=== PATIENT | male | born 1960 | race Caucasian/White ===

== ENCOUNTER 2019-06-07 19:40 | Emergency (ER) | payer MEDICAID, SELFPAY | END 2019-06-08 03:33 | disposition admitted as inpatient to this hospital (09) | LOC: ER 07-07 09:53 | PROVIDERS: Emergency Provider Nurse Practitioner Family | DX: G93.40 Encephalopathy, unspecified (principal); B18.2 Chronic viral hepatitis C; K40.90 Unilateral inguinal hernia, without obstruction or gangrene, not specified as recurrent; F17.210 Nicotine dependence, cigarettes, uncomplicated | CPT/HCPCS: 36415; 70450; 74177; 80053; 82140; 83605; 83690; 85025; 87040; 96360; 99283; 99285; J7030; Q9967 ==

== ENCOUNTER 2019-06-07 19:40 | Inpatient (IN) | payer MEDICAID, SELFPAY ==
[2019-06-07 20:50] VITALS: BP 174/82; PULSE 74; RESP 20; TEMP 36.6; O2SAT 100; BMI 28.1
--- NOTE | 2019-06-07 21:23 | W.ED.ABDPA2 ---
HPI - Abdominal Pain General: Chief Complaint: Abdominal Pain Stated Complaint: AMS Time Seen by Provider: 06/07/19 21:15 History of Present Illness: HPI narrative: Patient was brought in by his sister for concerns of him sleeping for the last 3 days. Patient barely moves around or gets up out of bed. Patient did report that 2 days ago he did throw up quite a bit and has been having some diarrhea. Patient has a history of high ammonia levels due to liver disease, patient reports being in [facility] for high ammonia levels about 2 to 3 weeks ago. Patient states he could not get his medication due to cost. Patient reports diagnosis of hepatitis C. Patient appears chronically ill. Patient appears in no pain at rest. Associated Symptoms: Reports nausea Review of Systems General: Reports: 10 or more systems reviewed and unremarkable except in HPI and below Const: Reports: fatigue and malaise GI: Reports: abdominal pain and nausea PFSH ED PFSH: Statuses (acute, chronic, etc) shown below reflect problem list status as previously entered and may not be historically accurate Social History Smoking and tobacco status: current every day smoker Physical Exam Const: COMMON NORMALS: no apparent distress and oriented x3 GENERAL APPEARANCE: cooperative HENMT: COMMON NORMALS: normocephalic, external ears normal, EAC's normal, TM's normal bilaterally and external nose normal HEAD & SCALP: normal to inspection and normocephalic FACE & SINUS: normal facial exam NOSE: external nose normal GENERAL EAR: hearing not grossly impaired EXTERNAL EAR: Yes external ears normal EXTERNAL AUDITORY CANAL: EAC's normal TYMPANIC MEMBRANE: TM's normal bilaterally MOUTH: oral and palatal mucosa normal (oral mucosa mildly dry) THROAT: posterior oropharynx normal Eye: COMMON NORMALS: PERRL and EOMs intact bilaterally PUPIL: Yes PERRL Neck/C-Spine: COMMON NORMALS: full ROM and no lymphadenopathy Lymph: LYMPHATIC: no lymphedema noted Chest: COMMONS NORMALS: inspection of chest normal and palpation of chest normal Resp: COMMON NORMALS: normal respiratory effort and clear to auscultation bilaterally AUSCULTATION: clear to auscultation bilaterally Cardio: COMMON NORMALS: regular rate and regular rhythm RATE: regular rate RHYTHM: regular rhythm GI: COMMON NORMALS: soft to palpation PALPATION: Yes soft and Yes tender (suprapubic, swelling to right inguinal area, soft, reducible hernia) : COMMON NORMALS: Yes no CVA tenderness BLADDER/KIDNEY EXAM: Yes no CVA tenderness Back/Pelvis: COMMON NORMALS: no CVA tenderness and thoracic and lumbar spine normal to inspection Extremity: COMMON NORMALS: normal to inspection GENERAL: No edema Neuro: COMMON NORMALS: oriented x3, moves all extremities and no focal motor deficits Psych: COMMON NORMALS: mental status grossly normal and cooperative Skin: COMMON NORMALS: no rashes or lesions noted GENERAL SKIN EXAM: no rashes or lesions noted Course ED course: 4, reviewed with Dr. Fournier patient abnormal ammonia, recommended treatment with Lactulose, potassium, check for ETOH, CT head and abd, and magnessium, then we will talk with hospitalist for admission. wjw [id number], talked with Dr. Suarez, will come see patient in ER for evaluation. wjw [id number], Dr. Nguyễn visited with patient, agreed to admission. wjw Vital Signs: Vital signs: Vital Signs Temperature 97.9 F 06/07/19 20:50 Pulse Rate 76 06/07/19 23:31 Respiratory Rate 16 06/07/19 23:31 Blood Pressure 135/66 06/07/19 23:31 Pulse Oximetry 100 06/07/19 23:01 MDM - Abdominal Pain MDM Narrative: Medical decision making narrative: Patient comes in today for complaints of change in mental status. On exam patient has mild jaundice skin. Respirations are even lungs are clear to auscultation. Skin is warm and dry. Decreased turgor is noted. Abdomen soft. Patient does have a reducible hernia in the right inguinal area. Oromucosa is mildly dry. Differential diagnosis includes hepatic encephalopathy, dehydration, sepsis, bowel obstruction, gastroenteritis, UTI. Laboratory values were significant for a potassium 3.3, ammonia of 109, bilirubin of 1.9. Patient was medicated in the ER with 20 mEq of potassium, 1 L of IV fluids, 30 g of lactulose. Reviewed patient with Dr. Romano who recommended that patient be admitted to the hospital for altered mental status and hepatic encephalopathy. Reviewed with Dr. Nguyễn who after visiting with patient agreed to plan for admission. Patient needs admission for IV fluids, medical therapy, repeat labs. Lab Data: Labs: Lab Results 06/07/19 06/07/19 06/07/19 Range/Units 21:24 21:24 21:24 WBC 6.1 (4.0-10.0) 10^3/ uL RBC 3.59 L (4.1-5.3) 10^6/u L Hgb 12.4 (11.7-16.6) g/dL Hct 34.5 L (42.0-52.0) % MCV 96.1 H (80-94) fL MCH 34.5 H (28.0-34.0) pg MCHC 35.9 (30.0-36.0) g/dL RDW 14.2 (12.1-15.1) % Plt Count 120 L (130-400) 10^3/c mm MPV 11.3 H (7.4-10.4) fL Neut % (Auto) 51.9 % Lymph % (Auto) 24.7 % [place] % (Auto) 14.9 % Eos % (Auto) 7.2 % Baso % (Auto) 1.0 % Neut # (Auto) 3.2 (1.8-7.7) 10^3/u L Lymph # (Auto) 1.5 (0.8-4.8) 10^3/u L [place] # (Auto) 0.9 (0.2-0.9) 10^3/u L Eos # (Auto) 0.4 (0.0-0.8) 10^3/u L Baso # (Auto) 0.1 (0.0-0.1) 10^3/u L Nucleated RBC % (a uto) 0 % Nucleated RBCs # 0.0 /100WBC Sodium 140 (136-145) mmol/L Potassium 3.3 L (3.5-5.1) mmol/L Chloride 109 H (98-107) mmol/L Carbon Dioxide 21 L (22-29) mmol/L Anion Gap 13.3 (5-19) BUN 12 (6-20) mg/dL Creatinine 0.6 L (0.7-1.2) mg/dL GFR Calculation 137.9 H (90-130) mL/min Glucose 115 H (74-109) mg/dL Lactic Acid 1.5 (0.5-2.2) mmol/L Calcium 9.3 (8.6-10.0) mg/Dl Magnesium (1.7-2.3) mg/dL Total Bilirubin 1.9 H (0.15-1.2) mg/dL AST 49 H (0-40) U/L ALT 32 (0-41) U/L Alkaline Phosphata se 123 (40-130) IU/L Ammonia (16-60) umol/L Total Protein 6.3 L (6.6-8.7) g/dL Albumin 2.7 L (3.5-5.2) g/dL Globulin 3.6 (1.3-4.6) g/dL Lipase 70 H (13-60) U/L Urine Color (Yellow) Urine Appearance (CLEAR) Urine pH (5-7) Ur Specific Gravit y (1.005-1.030) Urine Protein (Negative) Urine Glucose (UA) (Normal) Urine Ketones (Negative) Urine Occult Blood (Negative) Urine Nitrate (Negative) Urine Bilirubin (NEGATIVE) Urine Urobilinogen (Negative) mg/dL Ur Leukocyte Yahaira ase (Negative) Urine RBC (0-2) /hpf Urine WBC (0-5) /hpf Ur Squamous Epith Cells (0-5) Urine Bacteria (NONE) Urine Opiates Scre en (Negative) ng/mL Ur Barbiturates Sc reen (Negative) ng/mL Ur Phencyclidine S crn (Negative) ng/mL Ur Amphetamines Sc reen (Negative) ng/mL U Benzodiazepines Scrn (Negative) ng/mL Urine Cocaine Scre en (Negative) ng/mL U Marijuana (THC) Screen (Negative) ng/mL Ethyl Alcohol (0-10) mg/dL 06/07/19 06/07/19 06/07/19 Range/Units 21:24 23:50 23:50 WBC (4.0-10.0) 10^3/ uL RBC (4.1-5.3) 10^6/u L Hgb (11.7-16.6) g/dL Hct (42.0-52.0) % MCV (80-94) fL MCH (28.0-34.0) pg MCHC (30.0-36.0) g/dL RDW (12.1-15.1) % Plt Count (130-400) 10^3/c mm MPV (7.4-10.4) fL Neut % (Auto) % Lymph % (Auto) % [place] % (Auto) % Eos % (Auto) % Baso % (Auto) % Neut # (Auto) (1.8-7.7) 10^3/u L Lymph # (Auto) (0.8-4.8) 10^3/u L [place] # (Auto) (0.2-0.9) 10^3/u L Eos # (Auto) (0.0-0.8) 10^3/u L Baso # (Auto) (0.0-0.1) 10^3/u L Nucleated RBC % (a uto) % Nucleated RBCs # /100WBC Sodium (136-145) mmol/L Potassium (3.5-5.1) mmol/L Chloride (98-107) mmol/L Carbon Dioxide (22-29) mmol/L Anion Gap (5-19) BUN (6-20) mg/dL Creatinine (0.7-1.2) mg/dL GFR Calculation (90-130) mL/min Glucose (74-109) mg/dL Lactic Acid (0.5-2.2) mmol/L Calcium (8.6-10.0) mg/Dl Magnesium (1.7-2.3) mg/dL Total Bilirubin (0.15-1.2) mg/dL AST (0-40) U/L ALT (0-41) U/L Alkaline Phosphata se (40-130) IU/L Ammonia 109 H (16-60) umol/L Total Protein (6.6-8.7) g/dL Albumin (3.5-5.2) g/dL Globulin (1.3-4.6) g/dL Lipase (13-60) U/L Urine Color Yellow (Yellow) Urine Appearance Clear (CLEAR) Urine pH 5 (5-7) Ur Specific Gravit y 1.015 (1.005-1.030) Urine Protein Neg (Negative) Urine Glucose (UA) Norm (Normal) Urine Ketones Negative (Negative) Urine Occult Blood Neg (Negative) Urine Nitrate Negative (Negative) Urine Bilirubin Neg (NEGATIVE) Urine Urobilinogen >=8.0 H (Negative) mg/dL Ur Leukocyte Yahaira ase Negative (Negative) Urine RBC None (0-2) /hpf Urine WBC None (0-5) /hpf Ur Squamous Epith Cells None (0-5) Urine Bacteria None (NONE) Urine Opiates Scre en Negative (Negative) ng/mL Ur Barbiturates Sc reen Negative (Negative) ng/mL Ur Phencyclidine S crn Negative (Negative) ng/mL Ur Amphetamines Sc reen Positive H (Negative) ng/mL U Benzodiazepines Scrn Negative (Negative) ng/mL Urine Cocaine Scre en Negative (Negative) ng/mL U Marijuana (THC) Screen Negative (Negative) ng/mL Ethyl Alcohol (0-10) mg/dL 06/08/19 Range/Units 21:24 WBC (4.0-10.0) 10^3/ uL RBC (4.1-5.3) 10^6/u L Hgb (11.7-16.6) g/dL Hct (42.0-52.0) % MCV (80-94) fL MCH (28.0-34.0) pg MCHC (30.0-36.0) g/dL RDW (12.1-15.1) % Plt Count (130-400) 10^3/c mm MPV (7.4-10.4) fL Neut % (Auto) % Lymph % (Auto) % [place] % (Auto) % Eos % (Auto) % Baso % (Auto) % Neut # (Auto) (1.8-7.7) 10^3/u L Lymph # (Auto) (0.8-4.8) 10^3/u L [place] # (Auto) (0.2-0.9) 10^3/u L Eos # (Auto) (0.0-0.8) 10^3/u L Baso # (Auto) (0.0-0.1) 10^3/u L Nucleated RBC % (a uto) % Nucleated RBCs # /100WBC Sodium (136-145) mmol/L Potassium (3.5-5.1) mmol/L Chloride (98-107) mmol/L Carbon Dioxide (22-29) mmol/L Anion Gap (5-19) BUN (6-20) mg/dL Creatinine (0.7-1.2) mg/dL GFR Calculation (90-130) mL/min Glucose (74-109) mg/dL Lactic Acid (0.5-2.2) mmol/L Calcium (8.6-10.0) mg/Dl Magnesium 1.8 (1.7-2.3) mg/dL Total Bilirubin (0.15-1.2) mg/dL AST (0-40) U/L ALT (0-41) U/L Alkaline Phosphata se (40-130) IU/L Ammonia (16-60) umol/L Total Protein (6.6-8.7) g/dL Albumin (3.5-5.2) g/dL Globulin (1.3-4.6) g/dL Lipase (13-60) U/L Urine Color (Yellow) Urine Appearance (CLEAR) Urine pH (5-7) Ur Specific Gravit y (1.005-1.030) Urine Protein (Negative) Urine Glucose (UA) (Normal) Urine Ketones (Negative) Urine Occult Blood (Negative) Urine Nitrate (Negative) Urine Bilirubin (NEGATIVE) Urine Urobilinogen (Negative) mg/dL Ur Leukocyte Yahaira ase (Negative) Urine RBC (0-2) /hpf Urine WBC (0-5) /hpf Ur Squamous Epith Cells (0-5) Urine Bacteria (NONE) Urine Opiates Scre en (Negative) ng/mL Ur Barbiturates Sc reen (Negative) ng/mL Ur Phencyclidine S crn (Negative) ng/mL Ur Amphetamines Sc reen (Negative) ng/mL U Benzodiazepines Scrn (Negative) ng/mL Urine Cocaine Scre en (Negative) ng/mL U Marijuana (THC) Screen (Negative) ng/mL Ethyl Alcohol < 10 (0-10) mg/dL Discharge Plan Discharge Patient Disposition: Admitted As Inpatient Clinical Impression: Encephalopathy, hepatic, Hep C w/o coma, chronic, Inguinal hernia Condition: Stable Prescriptions: No Action Unable to Assess RF: 0 Coding Level of Care Code ED Civil Structural Designer for Chg Fwd Exam Problem Focused
[2019-06-07 21:46] LABS: Basophils # 0.1 10^3/uL (0.0-0.1); Eosinophils # 0.4 10^3/uL (0.0-0.8); Eosinophils % 7.2 %; Hematocrit 34.5 % (42.0-52.0); Hemoglobin 12.4 g/dL (11.7-16.6); Lymphocytes # 1.5 10^3/uL (0.8-4.8); Lymphocytes % 24.7 %; Mean Corpuscular HGB Conc 35.9 g/dL (30.0-36.0); Mean Corpuscular Hemoglobin 34.5 pg (28.0-34.0); Mean Corpuscular Volume 96.1 fL (80-94); Mean Platelet Volume 11.3 fL (7.4-10.4); Monocytes # 0.9 10^3/uL (0.2-0.9); Monocytes % 14.9 %; Neutrophils # 3.2 10^3/uL (1.8-7.7); Neutrophils % 51.9 %; Nucleated Red Blood Cells % 0 %; Platelet Count 120 10^3/cmm (130-400); Red Blood Count 3.59 10^6/uL (4.1-5.3); Red Cell Distribution Width 14.2 % (12.1-15.1); White Blood Count 6.1 10^3/uL (4.0-10.0)
[2019-06-07 21:58] LABS: Alanine Aminotransferase 32 U/L (0-41); Albumin Level 2.7 g/dL (3.5-5.2); Alkaline Phosphatase 123 IU/L (40-130); Anion Gap 13.3 (5-19); Aspartate Amino Transferase 49 U/L (0-40); Blood Urea Nitrogen 12 mg/dL (6-20); Calcium 9.3 mg/Dl (8.6-10.0); Carbon Dioxide 21 mmol/L (22-29); Chloride 109 mmol/L (98-107); Globulin 3.6 g/dL (1.3-4.6); Glomerular Filtration Rate 137.9 mL/min (90-130); Glucose 115 mg/dL (74-109); Lipase 70 U/L (13-60); Potassium 3.3 mmol/L (3.5-5.1); Sodium 140 mmol/L (136-145); Total Bilirubin 1.9 mg/dL (0.15-1.2); Total Protein 6.3 g/dL (6.6-8.7)
[2019-06-07 22:00] LABS: Lactic Sepsis W/Reflex 1.5 mmol/L (0.5-2.2)
[2019-06-07] MEDS: sodium chloride 0.9% 1,000 ML 999 ML IV (22:22)
[2019-06-07 22:31] VITALS: BP 153/99
[2019-06-07 22:53] LABS: Ammonia 109 umol/L (16-60)
[2019-06-07 23:01] VITALS: BP 151/80; PULSE 75; RESP 16; O2SAT 100
[2019-06-07 23:31] VITALS: BP 135/66; PULSE 76; RESP 16
[2019-06-08] VITALS (7 sets, daily range): BP systolic 132–175; BP diastolic 56–84; PULSE 71–84; RESP 16–24; TEMP 36.8–37.4; O2SAT 95–100
--- NOTE | 2019-06-08 00:21 | CTR_ITS ---
PROCEDURE INFORMATION: Exam: CT Head Without Contrast Exam date and time: 06/08/2019 12:22 AM Age: 58 years old Clinical indication: Injury or trauma; Fall; Initial encounter; Blunt trauma (contusions or hematomas); Without loss of consciousness; Additional info: AMS TECHNIQUE: Imaging protocol: Computed tomography of the head without contrast. Total DLP: 802.28 mGy-cm Radiation optimization: All CT scans at this facility use at least one of these dose optimization techniques: automated exposure control; mA and/or kV adjustment per patient size (includes targeted exams where dose is matched to clinical indication); or iterative reconstruction. COMPARISON: No relevant prior studies available. FINDINGS: Brain: Normal. No hemorrhage. Unremarkable white matter. No mass effect. Ventricles: Normal. No ventriculomegaly. Bones/joints: Unremarkable. No acute fracture. Sinuses: Visualized sinuses are unremarkable. No fluid levels. Mastoid air cells: Visualized mastoid air cells are well aerated. Soft tissues: Unremarkable. CT/CT head wo con* [id number] IMPRESSION: Negative for intracranial hemorrhage or mass effect. Radiation Dose CTDIVOL = (mGy): DLP = 802.28 (mGy-cm)
--- NOTE | 2019-06-08 00:21 | CTR_ITS ---
PROCEDURE INFORMATION: Exam: CT Abdomen And Pelvis With Contrast Exam date and time: 06/08/2019 12:22 AM Age: 58 years old Clinical indication: Abdominal pain; Generalized; Additional info: Abd pain TECHNIQUE: Imaging protocol: Computed tomography of the abdomen and pelvis with intravenous contrast. Total DLP: 681.04 mGy-cm Radiation optimization: All CT scans at this facility use at least one of these dose optimization techniques: automated exposure control; mA and/or kV adjustment per patient size (includes targeted exams where dose is matched to clinical indication); or iterative reconstruction. Contrast material: OMNI 300; Contrast volume: 95 ml; Contrast route: IV; COMPARISON: No relevant prior studies available. FINDINGS: Lungs: Lingular and left lower lobe atelectasis versus minimal infiltrate. Pleural space: Trace left pleural effusion. Liver: Left hepatic lobe 12 mm cyst. Gallbladder and bile ducts: Normal. No calcified stones. No ductal dilation. Pancreas: Normal. No ductal dilation. Spleen: Normal. No splenomegaly. Adrenals: Normal. No mass. Kidneys and ureters: Left kidney punctate nonobstructing renal calyceal stone. Stomach and bowel: Right moderate inguinal hernia containing bowel with some mildly prominent loops of small bowel in the abdomen with fluid levels may potentially reflect an evolving obstruction in the appropriate clinical setting, please correlate for reduction. Constipation. Appendix: No evidence of appendicitis. Intraperitoneal space: Unremarkable. No free air. No significant fluid collection. Vasculature: Varices in the upper abdomen near the gastroesophageal junction. Lymph nodes: Unremarkable. No enlarged lymph nodes. Bladder: Unremarkable as visualized. Reproductive: Unremarkable as visualized. Bones/joints: Unremarkable. No acute fracture. Soft tissues: Unremarkable. CT/CT abdomen pelvis w con* [id number] IMPRESSION: 1. Right moderate inguinal hernia containing bowel with some mildly prominent loops of small bowel in the abdomen with fluid levels may potentially reflect an evolving obstruction in the appropriate clinical setting, please correlate for reduction. 2. Constipation. 3. Lingular and left lower lobe atelectasis versus minimal infiltrate. 4. Trace left pleural effusion. 5. Left kidney punctate nonobstructing renal calyceal stone. 6. Varices in the upper abdomen near the gastroesophageal junction. Radiation Dose CTDIVOL = (mGy): DLP = 681.04 (mGy-cm)
[2019-06-08 00:40] LABS: Magnesium 1.8 mg/dL (1.7-2.3)
[2019-06-08 00:42] LABS: Alcohol Level < 10 mg/dL (0-10)
[2019-06-08] MEDS: iohexol 300 mg/mL 100 mL Btl IV (01:06)
[2019-06-08] MEDS: lactulose oral liq 20 gm/30 mL UDC 30 GM PO (01:16)
[2019-06-08 01:18] LABS: Barbiturates Screen Urine Negative (Negative); Benzodiazepines Screen Urine Negative (Negative); Cocaine Screen Urine Negative (Negative); Opiate Screen Urine Negative (Negative); PCP Screen Urine Negative (Negative); THC Screen Urine Negative (Negative)
[2019-06-08 01:19] LABS: Amphetamines Screen Urine Positive (Negative); Bilirubin Urine Neg (NEGATIVE); Blood Urine Neg (Negative); Glucose Urine UA Norm (Normal); Ketones Urine Negative (Negative); Leukocyte Esterase Urine Negative (Negative); Nitrate Urine Negative (Negative); Protein Urine Neg (Negative); Specific Gravity, Urine 1.015 (1.005-1.030); Urine Appearance Clear (CLEAR); Urine Color Yellow (Yellow); Urobilinogen Urine >=8.0 mg/dL (Negative); pH Urine 5 (5-7)
[2019-06-08] MEDS: enoxaparin 40 mg/0.4 mL Syringe SUBCUT (04:11)
--- NOTE | 2019-06-08 04:30 | PC.NURSE ---
Attempted to complete the physical assessment on patient at this time. Patient has put both of his jackets back on and states, Everytime one of you come in here you are taking a mastic floor layer of me and I have told you several times I am cold. 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 I am not going to answer anymore of your questions I am going to sleep. Charge nurse notified.
[2019-06-08 04:52] LABS: Basophils # 0.1 10^3/uL (0.0-0.1); Basophils % 0.9 %; Eosinophils # 0.4 10^3/uL (0.0-0.8); Eosinophils % 7.3 %; Hematocrit 33.1 % (42.0-52.0); Hemoglobin 11.8 g/dL (11.7-16.6); Lymphocytes # 1.5 10^3/uL (0.8-4.8); Lymphocytes % 25.7 %; Mean Corpuscular HGB Conc 35.6 g/dL (30.0-36.0); Mean Corpuscular Hemoglobin 33.2 pg (28.0-34.0); Mean Corpuscular Volume 93.2 fL (80-94); Mean Platelet Volume 11.5 fL (7.4-10.4); Monocytes # 0.7 10^3/uL (0.2-0.9); Monocytes % 12.1 %; Neutrophils # 3.1 10^3/uL (1.8-7.7); Nucleated Red Blood Cells % 0 %; Platelet Count 118 10^3/cmm (130-400); Red Blood Count 3.55 10^6/uL (4.1-5.3); Red Cell Distribution Width 14.1 % (12.1-15.1); White Blood Count 5.8 10^3/uL (4.0-10.0)
--- NOTE | 2019-06-08 04:52 | P.HP_ITS ---
Providers/Chief Complaint Admitting Physician: Puma Nguyễn MD Chief Complaint: HEPATIC ENCEPHALOPATHY History of Present Illness Chung Del Toro is a 58 year old male who was sent by his sister for chief complaint of altered mental status i.e. confusion. Patient has a history of chronic liver disease due to hepatitis C, he does not take any medications at home because he is not able to afford medications, he was recently admitted to [facility] for same complaint and was discharged on medications for hepatic encephalopathy but he was not able to afford the medication hence did not take any. Patient is stating that for last couple of days he has been having liquidy bowel movements without any blood or mucus production, he is very lethargic and tired sleep cycle is disturbed, he takes methamphetamine to relieve back pain. He was not able to tell me clearly whether he was treated for hepatitis C in the past or not. He denies drinking alcohol or use of [id number] medications. Patient is stating that he has not eaten well in last 2 to 3 days and he is extremely hungry. Diagnostics in ER showed normal hemodynamics abnormal ammonia level, mild confusion CT head negative, right-sided inguinal hernia which is reproducible without any signs of gangrene or obstruction, U tox positive for methamphetamine Review of Systems Const: Reports: body aches, change in appetite, fatigue, malaise, change in sleep pattern and daytime sleepiness; Denies: fever, chills or night sweats Eyes: Denies: change in vision ENMT: Denies: throat pain Card: Denies: chest pain Resp: Denies: shortness of breath GI: Reports: diarrhea, bloating, cramping, change in bowel habits and change in stool character; Denies: abdominal pain : Denies: flank pain or difficulty urinating Musc: Denies: neck pain Neuro: Denies: headache Psych: Reports: anxiety Endo: Reports: cold intolerance; Denies: excessive urination Fadi/Lymph: Denies: easy bruising All/Imm: Denies: hives or throat swelling Medications/Allergies Home Medications Medication Instructions Recorded Confirmed Last Taken Type Unable to Assess 06/07/19 06/07/19 Unknown History Allergies Allergy/AdvReac Type Severity Reaction Status Date / Time Penicillins Allergy ALGY-Rash Verified 06/07/19 20:48 PFSH Acute PFSH: Statuses (acute, chronic, etc) shown below reflect problem list status as previously entered and may not be historically accurate Medical History (Updated 06/08/19 @ 04:55 by Puma Nguyễn MD) Hepatitis C (Acute) Lower back injury (Acute) Polysubstance abuse (Acute) Surgical History (Updated 06/08/19 @ 04:55 by Puma Nguyễn MD) Previous back surgery (Acute) Family History (Updated 06/08/19 @ 05:01 by Puma Nguyễn MD) Other Hyperlipidemia Hypertension Social History (Updated 06/08/19 @ 05:02 by Puma Nguyễn MD) Smoking and tobacco status: current every day smoker Alcohol intake: never Substance/Drug Use: current Counseling given: Yes Lives independently: No Household members: caregiver Marital status: / Vitals/I&O/Wt Last Vital Signs Temp 98.5 F 06/08/19 03:00 Pulse 71 06/08/19 03:00 Resp 16 06/08/19 03:00 BP 138/84 06/08/19 03:00 Pulse Ox 95 06/08/19 03:00 Weight last 48 hrs Weight 81.647 kg Physical Exam Narrative: EXAM NARRATIVE: Patient was lying comfortable in his bed he was asking for sandwich He was alert, oriented x3, GCS 15, no asterixis, able to follow my verbal commands, no stigmata of chronic liver disease evident on physical exam, Mild conjunctival icterus I was not able to locate angiomas or telangiectasias on arms or chest S1-S2 no JVD heart failure or murmur Abdomen soft, distended, bowel sounds present, nontender, hyperactive bowel sounds Lungs are clear to auscultation without active murmur or wheezing Skin is not showing any signs of chronic liver disease such as Dupuytren contracture, angiomas, prominent vessels, Patient has a prominent laparotomy scar Trace edema of lower extremity positive bilaterally Patient has good attention span, flat affect with depressed mood Data : 06/07/19 21:24 06/07/19 21:24 Micro: Microbiology 06/07/19 21:24 Blood Culture - Preliminary Blood SPECIMEN COLLECTED A&P Assessment and plan (1) Encephalopathy, hepatic: Status: Acute Code(s): K72.90 - Hepatic failure, unspecified without coma (2) Inguinal hernia: Status: Acute Qualifiers: Laterality: unilateral Obstruction and gangrene presence: without obstruction or gangrene Recurrence: not specified as recurrent Qualified Code(s): K40.90 - Unilateral inguinal hernia, without obstruction or gangrene, not specified as recurrent Code(s): K40.90 - Unilateral inguinal hernia, without obstruction or gangrene, not specified as recurrent (3) Chronic liver disease: Status: Acute Code(s): K76.9 - Liver disease, unspecified (4) Recurrent inguinal hernia of right side without obstruction or gangrene: Status: Acute Code(s): K40.91 - Unilateral inguinal hernia, without obstruction or gangrene, recurrent Additional A&P Information Grade 1 hepatic encephalopathy secondary to dehydration and diarrhea Would avoid using lactulose for now, he has disturbed sleep cycle with mild confusion, asterixis negative Check cdiff panel Hemodynamically normal For high ammonia level would use rifaximin only for now Correct electrolyte imbalance i.e. hypokalemia Check magnesium level MEld score 9 points He will need screening for hepatocellular cancer with liver ultrasound, EGD to rule out portal hypertension and variceal bleed prophylaxis which might be challenging in his case because of social dynamics He has been afebrile, no leukocytosis, will do ceftriaxone empirically for SBP, will get liver ultrasound Right-sided reversible inguinal hernia No signs of gangrene or obstruction Will need outpatient surgical follow-up Polysubstance abuse: Patient is using methamphetamine DVT prophylaxis: Lovenox Patient is full code Social dynamics: Patient is stating that he will not be able to afford any medications for his liver failure and encephalopathy will consult protective services social worker for further assistance Attestations Medical Necessity Statement*: Dissipating stay to cross more than 2 midnights because of hepatic encephalopathy and poor social dynamics Time Spent in Patient Care: (>than 50% of time spent in counselling and/or direct pt care on unit) . 40 Coding Level of Care Code Acute Aquatic Ecologist for [facility] Fwd Diagnoses Encephalopathy, hepatic K72.90 Inguinal hernia K40.90 Laterality: unilateral Obstruction and gangrene presence: without obstruction or gangrene Recurrence: not specified as recurrent Chronic liver disease K76.9 Recurrent inguinal hernia of right side without obstruction or gangrene K40.91
[2019-06-08 05:15] LABS: Alanine Aminotransferase 31 U/L (0-41); Alkaline Phosphatase 130 IU/L (40-130); Anion Gap 14.5 (5-19); Aspartate Amino Transferase 49 U/L (0-40); Blood Urea Nitrogen 12 mg/dL (6-20); Calcium 9.3 mg/Dl (8.6-10.0); Carbon Dioxide 20 mmol/L (22-29); Chloride 110 mmol/L (98-107); Globulin 3.3 g/dL (1.3-4.6); Glomerular Filtration Rate 115.4 mL/min (90-130); Glucose 138 mg/dL (74-109); Potassium 3.5 mmol/L (3.5-5.1); Sodium 141 mmol/L (136-145); Total Bilirubin 1.8 mg/dL (0.15-1.2); Total Protein 6.3 g/dL (6.6-8.7)
[2019-06-08] MEDS: cefTRIAXone 1,000 MG in sodium chloride 0.9% (plus) 50 ML 100 MG IV (06:01)
--- NOTE | 2019-06-08 06:34 | PC.NURSE ---
Patient was willing to allow this nurse to complete the physical assessment at this time. Patient is a poor historian. Patient is alert to person, place and situation.
[2019-06-08 07:39] LABS: INR 1.25 (0.8-1.2)
[2019-06-08 10:22] LABS: Influenza A by IFA Negative (Negative); Influenza B by IFA Negative (Negative)
[2019-06-08] MEDS: lactulose oral liq 20 gm/30 mL UDC PO ×4 (12:06→22:37)
--- NOTE | 2019-06-08 12:13 | PC.CHAP ---
Pastoral Care Encounter/Spiritual Assessment Type of Contact [] Declined catia designer visit [] Patient/Family/Request visit [] Outpatient visit [] Follow-up visit [] Physician referral [] Code/Alert [x] Routine visit [] Staff referral [] Actively dying [] Patient sleeping [] Family support [] [] Out of room [] Palliative care [] [] Receiving care in room [] Pre-surgical visit [] Trauma [] Long length of stay [] ICU visit [] Other: Relational/Emotional Strength [] Patient feels connected with others/family/visitors/staff [] Distress [] Loneliness/isolation [] Abandonment Spirituality of Patient [x] Person of Alisson [] Attends Jainism of their Alisson [] Believes in Prayer [] Reads Bible or Tenriism materials [] There are Spiritual issues to be addressed Director Of Housing Interventions [x] Prayer [x] Active listening [x] Non-anxious presence [x] Spiritual/emotional support [x] Crisis/trauma care [] Spiritual counseling [] Bereavement support [] Provided bereavement packet [] Provided Bible/devotional materials [] Provided toy/stuffed animal, coloring book to patient or family member [x] Completed spiritual assessment [] Provided Communion [] Anointing/[place] [] Salvation [] Other: Impact on Illness or Injury [] Angry [] Fearful [x] Anxious [] Often cries [] Exhaustion [] Unable to work [] Unable to attend zoroastrian [] Unable to walk/stand [] Unable to read [] Unable to drive [] Unable to eat/drink [] Unable to sleep [] Unable to be with family [] Other: Summary patient looking for social media developer and catia designer talk to nurse Time spent with patient 10 min
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
--- NOTE | 2019-06-08 20:58 | PC.NURSE ---
Explained to patient at this time that the doctor has given him an order for Benadryl for sleep. Patient states, I can't take Benadryl because it makes me feel like I am on speed. It has the opposite effect on me it keeps me awake. Patient requested ice cream at this time. Vanilla Ice Cream given No other needs voiced at this time.
--- NOTE | 2019-06-08 21:38 | P.PN_ITS ---
Subjective Subjective: Interval history: Says that he is currently not functionally well, cannot gather his thoughts. Complains of bothersome symptoms from his inguinal hernia. Is concerned that he cannot afford to take his medications, is having difficult time taking care of himself. States that to his sister could take him in for some time after he is feeling somewhat better. Requests that his methamphetamine use not be shared with her. Vitals/I&O/Wt Last Vital Signs Temp 98.8 F 06/08/19 19:01 Pulse 79 06/08/19 19:01 Resp 22 H 06/08/19 19:01 BP 161/81 06/08/19 19:01 Pulse Ox 100 06/08/19 19:01 06/08/19 06/08/19 06/08/19 06:59 14:59 22:59 Intake Total 240 / 240 890 / 890 Output Total 450 / 450 Balance 240 / 240 440 / 440 Weight last 48 hrs Weight 81.647 kg Physical Exam Const: COMMON NORMALS: no apparent distress and oriented x3 OTHER: Some sluggish responses. He is mildly somnolent, but overall alert enough to lead a conversation, and fairly good with discussing his medical history. HENMT: COMMON NORMALS: oropharynx normal Neck/C-Spine: COMMON NORMALS: no JVD Resp: COMMON NORMALS: normal respiratory effort and clear to auscultation bilaterally AUSCULTATION: clear to auscultation bilaterally Cardio: COMMON NORMALS: no JVD, regular rhythm, S1 normal heart sound, S2 normal heart sound and no murmurs RHYTHM: regular rhythm HEART SOUNDS: S1 normal and S2 normal GI: COMMON NORMALS: normal to inspection, nondistended, normoactive bowel sounds, soft to palpation and non-tender PALPATION: Yes soft : MALE GROIN/PERINEUM EXAM: Yes hernia (Right inguinal) Extremity: COMMON NORMALS: no joint enlargement and no pedal edema Neuro: COMMON NORMALS: oriented x3 and moves all extremities Skin: COMMON NORMALS: no rashes or lesions noted GENERAL SKIN EXAM: no rashes or lesions noted Data : 06/08/19 04:25 06/08/19 04:25 Micro: Microbiology 06/08/19 15:50 Occult Blood (FIT) - Final Stool 06/07/19 21:24 Blood Culture - Preliminary Blood SPECIMEN COLLECTED A&P Assessment and plan (1) Encephalopathy, hepatic: Acute hepatic encephalopathy, with hyperammonemia on presentation. Has not been taking lactulose as he says cannot afford medications. Continue rifaximin. Started flows, start lactulose 2-3 soft bowel meds per day. If possible may need medication sent to employee pharmacy prior to discharge. Discussed with him importance of appliance, risk of recurrence/progression of hepatic encephalopathy, coma and if he verbalized understanding. Status: Acute Code(s): K72.90 - Hepatic failure, unspecified without coma (2) Inguinal hernia: Symptomatic hernia, which would benefit from repair, and he reports difficulty with healthcare access. Per discussion with surgery hernia may be repaired this should his clinical condition allow. At this time continue treatment of hepatic encephalopathy, reassess based on clinical progress. Status: Acute Qualifiers: Laterality: unilateral Obstruction and gangrene presence: without obstruction or gangrene Recurrence: not specified as recurrent Qualified Code(s): K40.90 - Unilateral inguinal hernia, without obstruction or gangrene, not specified as recurrent Code(s): K40.90 - Unilateral inguinal hernia, without obstruction or gangrene, not specif ied as recurrent (3) Chronic liver disease: With esophageal varices noted on CT. He denies ever having EGD. May benefit from pharmacologic prophylaxis, although would hold off on initiating until after possible hernia repair surgery. Will need continued follow-up with usual screenings. No ascites noted on CT scan. DC Rocephin. Status: Acute Code(s): K76.9 - Liver disease, unspecified (4) Recurrent inguinal hernia of right side without obstruction or gangrene: Status: Deleted Code(s): K40.91 - Unilateral inguinal hernia, without obstruction or gangrene, recurrent (5) Polysubstance abuse: Methamphetamine positive on drug screen. Admits to using. Questions that this not be shared with his sister. Discussed with him regarding avoidance of substance use given his serious medical conditions. He verbalized understanding. Status: Acute Code(s): F19.10 - Other psychoactive substance abuse, uncomplicated Attestations Medical Necessity Statement*: Continue admission management of hepatic encephalopathy. Coding Level of Care Code Acute Operations Coordinator for [facility] Diagnoses Encephalopathy, hepatic K72.90 Inguinal hernia K40.90 Laterality: unilateral Obstruction and gangrene presence: without obstruction or gangrene Recurrence: not specified as recurrent Chronic liver disease K76.9 Recurrent inguinal hernia of right side without obstruction or gangrene K40.91 Polysubstance abuse F19.10
--- NOTE | 2019-06-08 21:50 | PC.NURSE ---
In room to give patient his as needed for sleep pill of Trazodone. Patient appears to be a sleep. Patient arouses after calling his name. Explained to patient that the doctor has given him and order for Trazodone to help him sleep. Patient states, I am not taking a Psych medication for sleep. What is the problem with asking for a sleeping pill? I will just take the Benadryl or why can't I have a Tylenol PM. Explained to the patient the Tylenol PM has Benadryl in it. Patient states, I don't care I am not taking a Psych medication.
--- NOTE | 2019-06-08 22:38 | PC.NURSE ---
Patient laying in bed and appears asleep as he is snoring. Patient aroused to his name and ordered Lactulose given at this time. Patient voided at this time. Patient states, Could you get me the Tylenol PM? I explained to the patient that Tylenol PM has Benadryl in it there the physician would not be willing to give it to him. Patient states, I am not taking any Psych medications the doctor should have asked me about Psych medications. Explained to patient that the Trazodone is not being used as a Psych medication it was being used to help him sleep. Patient still states, I don't want no Psych medication.
[2019-06-09] VITALS (7 sets, daily range): BP systolic 116–146; BP diastolic 68–78; PULSE 75–81; RESP 18–22; TEMP 36.7–37.1; O2SAT 97–98
[2019-06-09] MEDS: lactulose oral liq 20 gm/30 mL UDC PO ×3 (00:43→17:22)
--- NOTE | 2019-06-09 00:50 | PC.NURSE ---
Patient had to be woken up to give his Lactulose medication. Patient asked for a sleeping pill and when it was explained to him that he refused the two different types of sleeping pills that were offered the patient became upset and stated that he hasnt slept at all during the night.
[2019-06-09] MEDS: enoxaparin 40 mg/0.4 mL Syringe SUBCUT (03:31)
[2019-06-09 04:24] LABS: Basophils # 0.1 10^3/uL (0.0-0.1); Basophils % 0.8 %; Eosinophils # 0.4 10^3/uL (0.0-0.8); Eosinophils % 6.2 %; Hematocrit 33.5 % (42.0-52.0); Hemoglobin 11.8 g/dL (11.7-16.6); Lymphocytes # 1.6 10^3/uL (0.8-4.8); Lymphocytes % 24.6 %; Mean Corpuscular HGB Conc 35.2 g/dL (30.0-36.0); Mean Corpuscular Hemoglobin 33.1 pg (28.0-34.0); Mean Corpuscular Volume 94.1 fL (80-94); Mean Platelet Volume 11.4 fL (7.4-10.4); Monocytes % 14.8 %; Neutrophils # 3.4 10^3/uL (1.8-7.7); Neutrophils % 53.4 %; Nucleated Red Blood Cells % 0 %; Platelet Count 117 10^3/cmm (130-400); Red Blood Count 3.56 10^6/uL (4.1-5.3); Red Cell Distribution Width 14.1 % (12.1-15.1); White Blood Count 6.4 10^3/uL (4.0-10.0)
[2019-06-09 04:37] LABS: Alanine Aminotransferase 27 U/L (0-41); Albumin Level 2.7 g/dL (3.5-5.2); Alkaline Phosphatase 132 IU/L (40-130); Anion Gap 11.9 (5-19); Aspartate Amino Transferase 40 U/L (0-40); Blood Urea Nitrogen 10 mg/dL (6-20); Calcium 9.1 mg/Dl (8.6-10.0); Carbon Dioxide 21 mmol/L (22-29); Chloride 110 mmol/L (98-107); Glomerular Filtration Rate 170.2 mL/min (90-130); Glucose 104 mg/dL (74-109); Potassium 3.9 mmol/L (3.5-5.1); Sodium 139 mmol/L (136-145); Total Bilirubin 1.5 mg/dL (0.15-1.2); Total Protein 5.7 g/dL (6.6-8.7)
[2019-06-09 05:03] LABS: Ammonia 82 umol/L (16-60)
--- NOTE | 2019-06-09 08:06 | P.PN_ITS ---
Subjective Subjective: Interval history: The patient says his mental fogginess continues to improve. He has decided that he would like to proceed with repair of his right inguinal hernia tomorrow morning if possible. Vitals/I&O/Wt Last Vital Signs Temp 98.4 F 06/09/19 07:20 Pulse 75 06/09/19 07:20 Resp 18 06/09/19 07:20 BP 133/68 06/09/19 07:20 Pulse Ox 98 06/09/19 07:20 06/08/19 06/09/19 06/09/19 22:59 06:59 14:59 Intake Total 100 / 990 0 / 990 Output Total 350 / 350 Balance 100 / 540 0 / 540 -350 / -350 Weight last 48 hrs Weight 180 lb Physical Exam Narrative: EXAM NARRATIVE: Physical exam is essentially unchanged. Data : 06/09/19 04:00 06/09/19 04:00 Micro: Microbiology 06/07/19 21:24 Blood Culture - Preliminary Blood NEGATIVE TO DATE 06/08/19 15:50 Occult Blood (FIT) - Final Stool A&P Assessment and plan (1) Hernia, inguinal, right: We once again discussed surgical risks of bleeding, infection, recurrence, postoperative activity limitations, etc. we will tentatively make arrangements for repair of the patient's right inguinal hernia tomorrow morning. Status: Acute Code(s): K40.90 - Unilateral inguinal hernia, without obstruction or gangrene, not specified as recurrent Attestations Medical Necessity Statement*: See admitting service's notation. Coding Level of Care Code Acute Etymology Professor for [facility] Diagnoses Hernia, inguinal, right K40.90
--- NOTE | 2019-06-09 21:24 | P.PN_ITS ---
Subjective Subjective: Interval history: seen earlier this morning at ~11:30am . Asleep at time of exam, wakes up easily to calling name, however declines to converse, states he does not want to be disturbed. earlier this morning, he was noted to be sitting up in bed, self feeding in no acute distress. Declined lactulose this morning due to multiple BMs overnight . Medications: Reviewed: Yes Vitals/I&O/Wt Last Vital Signs Temp 98.0 F 06/09/19 19:28 Pulse 76 06/09/19 19:28 Resp 18 06/09/19 19:28 BP 116/78 06/09/19 19:28 Pulse Ox 98 06/09/19 19:28 06/09/19 06/09/19 06/09/19 06:59 14:59 22:59 Intake Total 0 / 990 460 / 460 960 / 1420 Output Total 850 / 850 1400 / 2250 Balance 0 / 540 -390 / -390 -440 / -830 Physical Exam Narrative: EXAM NARRATIVE: GEN: Awake, alert and oriented when awake Declines examination Data : 06/09/19 04:00 06/09/19 04:00 Micro: Microbiology 06/07/19 21:24 Blood Culture - Preliminary Blood NEGATIVE TO DATE 06/08/19 15:50 Occult Blood (FIT) - Final Stool A&P Assessment and plan (1) Encephalopathy, hepatic: Acute hepatic encephalopathy, with hyperammonemia on presentation. Continue Lactulose but reduce frequency to q8h from q2h given multiple BMs (5-7) Continue rifaximin. Status: Acute Code(s): K72.90 - Hepatic failure, unspecified without coma (2) Inguinal hernia: Symptomatic hernia, which would benefit from repair, and he reports difficulty with healthcare access. Planned for surgery tomorrow morning Status: Acute Qualifiers: Laterality: unilateral Obstruction and gangrene presence: without obstruction or gangrene Recurrence: not specified as recurrent Qualified Code(s): K40.90 - Unilateral inguinal hernia, without obstruction or gangrene, not specified as recurrent Code(s): K40.90 - Unilateral inguinal hernia, without obstruction or gangrene, not spe cified as recurrent (3) Chronic liver disease: With esophageal varices noted on CT. He denies ever having EGD. May benefit from pharmacologic prophylaxis, although would hold off on initiating until after possible hernia repair surgery. Will need continued follow-up with usual screenings. No ascites noted on CT scan. Status: Acute Code(s): K76.9 - Liver disease, unspecified (4) Recurrent inguinal hernia of right side without obstruction or gangrene: Status: Deleted Code(s): K40.91 - Unilateral inguinal hernia, without obstruction or gangrene, recurrent (5) Polysubstance abuse: Methamphetamine positive on drug screen. Admits to using. Questions that this not be shared with his sister. Discussed with him regarding avoidance of substance use given his serious medical conditions. He verbalized understanding. 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
[2019-06-10] VITALS (19 sets, daily range): BP systolic 132–157; BP diastolic 57–82; PULSE 66–92; RESP 15–22; TEMP 36.6–37.5; O2SAT 96–100
[2019-06-10] MEDS: enoxaparin 40 mg/0.4 mL Syringe SUBCUT (03:41)
--- NOTE | 2019-06-10 06:59 | PM.PN ---
Subjective Subjective: Interval history: The patient says he seems to be feeling a little bit better every day. He still wants to proceed with his hernia repair today. Vitals/I&O/Wt Last Vital Signs Temp 98.3 F 06/10/19 05:00 Pulse 75 06/10/19 05:00 Resp 22 H 06/10/19 05:00 BP 143/68 06/10/19 05:00 Pulse Ox 99 06/10/19 05:00 06/09/19 06/09/19 06/10/19 14:59 22:59 06:59 Intake Total 460 / 460 1200 / 1660 Output Total 850 / 850 1400 / 2250 1020 / 3270 Balance -390 / -390 -200 / -590 -1020 / -1610 Physical Exam Narrative: EXAM NARRATIVE: Abdomen remains soft and nontender. Hernia is obviously still present. Data : 06/09/19 04:00 06/09/19 04:00 A&P Assessment and plan (1) Inguinal hernia: Inguinal hernia repair scheduled for today. Status: Acute Qualifiers: Laterality: unilateral Obstruction and gangrene presence: without obstruction or gangrene Recurrence: not specified as recurrent Qualified Code(s): K40.90 - Unilateral inguinal hernia, without obstruction or gangrene, not specified as recurrent Code(s): K40.90 - Unilateral inguinal hernia, without obstruction or gangrene, not specified as recurrent Attestations Medical Necessity Statement*: See admitting service's notation. Coding Level of Care Code Acute Oracle Database Consultant for [facility] Diagnoses Inguinal hernia K40.90 Laterality: unilateral Obstruction and gangrene presence: without obstruction or gangrene Recurrence: not specified as recurrent
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
[2019-06-10] MEDS: sodium chloride 0.9% 1,000 ML 30 ML IV (11:39)
[2019-06-10] MEDS: midazolam 1 mg/mL INJ 2 mL 2 MG IVP (12:00)
--- NOTE | 2019-06-10 12:59 | PM.OP ---
Operative Report Date of procedure: 06/10/19 Pre-op Diagnosis: Right Inguinal Hernia Post-op Diagnosis: Right indirect inguinal hernia. Procedure Done: Repair of right inguinal hernia with mesh. Specimens removed/disposition: None sent. Surgeon: Benjamin Clark Anesthesia: MAC Estimated blood loss (mL): 20 Complications: None. Condition: stable Disposition: floor Procedure: The patient was brought to the operating room and was placed in a supine position on the operating room table. A monitored anesthetic was induced. The right inguinal region was prepped and draped in a sterile fashion. A combination of 1% lidocaine and 0.5% bupivacaine with 1-200,000 parts epinephrine was used for local anesthesia throughout the procedure. A transverse incision was carried out above the level of the pubic tubercle. Larger subcutaneous vessels were ligated with ties of 2-0 Vicryl. Cautery was used to divide the subcutaneous tissue down to the external oblique aponeurosis which was incised in parallel with its fibers over the inguinal canal. The spermatic cord was looped with a [place] drain. An indirect hernia was found at the internal ring. The hernia sac and contents were carefully freed from the cord structures down to the internal ring and the hernia sac was reduced. A medium mesh plug was used to hold the hernia sac in a reduced position and was held in place with a suture of 0 Prolene that was used to connect the conjoined area medially to the reflecting edge of Poupart's ligament laterally. The onlay patch was anchored at the tubercle with a suture of 0 Prolene and was laid along the inguinal canal floor, allowing the cord structures to pass through the precut hole in the mesh. The two wings of mesh were sewn to each other above the level of the internal ring with a suture of 0 Prolene. The external oblique aponeurosis was closed over the top of the cord using a running suture of 3-0 Vicryl. The wound was irrigated with saline. The subcutaneous tissue was brought together with a simple suture of 3-0 Vicryl and the skin was approximated using a running subcuticular suture of 3-0 Vicryl. Benzoin and Steri-Strips were placed over the incision and a sterile bandage followed. The patient was taken to the recovery area in stable condition postoperatively.
[2019-06-10] MEDS: ketorolac 30 mg/mL INJ 15 MG IVP ×2 (15:05→22:06)
--- NOTE | 2019-06-10 15:18 | P.PN_ITS ---
Subjective Subjective: Interval history: Patient is status post repair of right inguinal hernia with mesh earlier today. Medications: Reviewed: Yes Vitals/I&O/Wt Last Vital Signs Temp 98.6 F 06/10/19 13:20 Pulse 80 06/10/19 13:20 Resp 18 06/10/19 13:20 BP 142/73 06/10/19 13:20 Pulse Ox 97 06/10/19 13:20 06/10/19 06/10/19 06/10/19 06:59 14:59 22:59 Intake Total 50 / 50 Output Total 1020 / 3270 Balance -1020 / -1610 Data : 06/09/19 04:00 06/09/19 04:00 A&P Assessment and plan (1) Encephalopathy, hepatic: Acute hepatic encephalopathy, with hyperammonemia on presentation. Continue Lactulose , Continue rifaximin for now. Status: Acute Code(s): K72.90 - Hepatic failure, unspecified without coma (2) Inguinal hernia: Status post right inguinal hernia repair today. Status: Acute Qualifiers: Laterality: unilateral Obstruction and gangrene presence: without obstruction or gangrene Recurrence: not specified as recurrent Qualified Code(s): K40.90 - Unilateral inguinal hernia, without obstruction or gangrene, not specified as recurrent Code(s): K40.90 - Unilateral inguinal hernia, without obstruction or gangrene, not specified as recurrent (3) Chronic liver disease: With esophageal varices noted on CT. He denies ever having EGD. May benefit from pharmacologic prophylaxis, although would hold off on initiating until after possible hernia repair surgery. Will need continued follow-up with usual screenings. No ascites noted on CT scan. Status: Acute Code(s): K76.9 - Liver disease, unspecified (4) Recurrent inguinal hernia of right side without obstruction or gangrene: Status: Deleted Code(s): K40.91 - Unilateral inguinal hernia, without obstruction or gangrene, recurrent (5) Polysubstance abuse: Methamphetamine positive on drug screen. Admits to using. Questions that this not be shared with his sister. Discussed with him regarding avoidance of substance use given his serious medical conditions. He verbalized understanding. Status: Acute Code(s): F19.10 - Other psychoactive substance abuse, uncomplicated Additional A&P Information DVT prophylaxis: Lovenox Patient is full code Attestations Medical Necessity Statement*: Underwent right hernia repair with mesh placement earlier today. Coding Level of Care Code Acute Staff Respiratory Therapist for Chg Fwd Diagnoses Encephalopathy, hepatic K72.90 Inguinal hernia K40.90 Laterality: unilateral Obstruction and gangrene presence: without obstruction or gangrene Recurrence: not specified as recurrent Chronic liver disease K76.9 Recurrent inguinal hernia of right side without obstruction or gangrene K40.91 Polysubstance abuse F19.10
[2019-06-10] MEDS: morphine 4 mg/mL SDV 1 mL IVP ×2 (18:22→22:57)
--- NOTE | 2019-06-10 19:55 | PC.NURSE ---
PATIENT IN [place] WENT TO ELEVATOR, STATED GOING TO SMOKE. REDIRECTED PATIENT BACK TO ELEVATOR TO ROOM WITH HELP FROM SECURITY. EXPLAINED TO PATIENT THIS IS SMOKE FREE FACILITY, PATIENT VOICED UNDERSTANDING. PATIENT BACK TO ROOM, CALL LIGHT WITH IN REACH.
[2019-06-10] MEDS: ceFAZolin 1,000 MG in sodium chloride 0.9% (plus) 50 ML 100 MG IV (21:51)
[2019-06-10] MEDS: trazodone 50 mg Tablet 25 MG PO (22:59)
[2019-06-11] VITALS (8 sets, daily range): BP systolic 116–143; BP diastolic 67–78; PULSE 86–92; RESP 16–20; TEMP 36.6–37.1; O2SAT 98–100
[2019-06-11] MEDS: ketorolac 30 mg/mL INJ 15 MG IVP ×2 (03:11→09:24)
[2019-06-11] MEDS: morphine 4 mg/mL SDV 1 mL IVP (04:33)
[2019-06-11] MEDS: ceFAZolin 1,000 MG in sodium chloride 0.9% (plus) 50 ML 100 MG IV (05:43)
--- NOTE | 2019-06-11 09:14 | P.PN_ITS ---
Subjective Subjective: Interval history: The patient is sore following his inguinal hernia repair yesterday, but says otherwise he is doing well. He said his had is much clear than it was on admission. He is getting up today and trying to shave and take a shower. Vitals/I&O/Wt Last Vital Signs Temp 98.8 F 06/11/19 07:10 Pulse 90 06/11/19 07:10 Resp 18 06/11/19 07:10 BP 143/75 06/11/19 07:10 Pulse Ox 99 06/11/19 07:10 06/10/19 06/11/19 06/11/19 22:59 06:59 14:59 Intake Total 50 / 100 1360 / 1460 Output Total 220 / 230 Balance -170 / -130 1360 / 1230 Physical Exam Narrative: EXAM NARRATIVE: The bandage is intact. The patient has minimal soft tissue swelling as expected. Data : 06/09/19 04:00 06/09/19 04:00 A&P Assessment and plan (1) Hernia, inguinal, right: Status post repair on 06/10/2019. The patient can be discharged when okay with the hospitalist team. Status: Acute Code(s): K40.90 - Unilateral inguinal hernia, without obstruction or gangrene, not specified as recurrent Attestations Medical Necessity Statement*: See admitting service's notation. Coding Level of Care Code Acute Collections Attorney for Juany Randall Diagnoses Hernia, inguinal, right K40.90
--- NOTE | 2019-06-11 12:32 | PM.PN ---
Subjective Subjective: Interval history: Status post right-sided inguinal hernia repair yesterday. He has remained afebrile, hemodynamically stable throughout. He has no new complaints today. c/o soreness over incison site. 2-3 soft BMs yesetrday. None today thus far. Medications: Reviewed: Yes Vitals/I&O/Wt Last Vital Signs Temp 98.3 F 06/11/19 11:03 Pulse 92 06/11/19 11:03 Resp 18 06/11/19 11:03 BP 125/69 06/11/19 11:03 Pulse Ox 100 06/11/19 11:03 06/10/19 06/11/19 06/11/19 22:59 06:59 14:59 Intake Total 50 / 100 1360 / 1460 Output Total 220 / 230 Balance -170 / -130 1360 / 1230 Physical Exam Narrative: EXAM NARRATIVE: GEN: Awake, alert and oriented, no acute distress, lying in bed CVS: S1S2 N RS: CTA B/L Abd: Soft, nt/nd , bs+ : discomfort to palpation over suprapubic area SOFTWARE QUALITY AUTOMATION ENGINEER: no focal neuro deficits Data : 06/11/19 13:04 06/11/19 13:04 A&P Assessment and plan (1) Polysubstance abuse: Status: Acute Code(s): F19.10 - Other psychoactive substance abuse, uncomplicated (2) Hernia, inguinal, right: Status: Acute Code(s): K40.90 - Unilateral inguinal hernia, without obstruction or gangrene, not specified as recurrent (3) Chronic liver disease: Status: Acute Code(s): K76.9 - Liver disease, unspecified (4) Encephalopathy, hepatic: Status: Acute Code(s): K72.90 - Hepatic failure, unspecified without coma Additional A&P Information Hepatic encephalopathy currently resolved.. Lactulose and Rifaximin orders discontinued after OR, resumed today Patient states he is sore today at surgical site, pain not adequately controlled at this time. Dialudid helps, toradol with no significant benefit. Change toradol to ibuprofen. Requesting Valium for sleep, 2mg ordered for tonight. Likely discharge tomorrow DVT ppx: lovenox Full code Attestations Medical Necessity Statement*: post op monitoring and pain management Coding Level of Care Code Acute Machine Stone Polisher Apprentice for g Fwd Diagnoses Polysubstance abuse F19.10 Hernia, inguinal, right K40.90 Chronic liver disease K76.9 Encephalopathy, hepatic K72.90
[2019-06-11 13:22] LABS: Basophils % 0.4 %; Eosinophils # 0.3 10^3/uL (0.0-0.8); Eosinophils % 3.5 %; Hematocrit 31.2 % (42.0-52.0); Hemoglobin 10.9 g/dL (11.7-16.6); Lymphocytes # 1.4 10^3/uL (0.8-4.8); Mean Corpuscular HGB Conc 34.9 g/dL (30.0-36.0); Mean Corpuscular Volume 94.5 fL (80-94); Mean Platelet Volume 11.6 fL (7.4-10.4); Monocytes # 1.1 10^3/uL (0.2-0.9); Monocytes % 13.3 %; Neutrophils # 5.7 10^3/uL (1.8-7.7); Neutrophils % 66.7 %; Nucleated Red Blood Cells % 0 %; Platelet Count 116 10^3/cmm (130-400); White Blood Count 8.5 10^3/uL (4.0-10.0)
[2019-06-11 13:37] LABS: Alanine Aminotransferase 19 U/L (0-41); Albumin Level 2.9 g/dL (3.5-5.2); Alkaline Phosphatase 119 IU/L (40-130); Anion Gap 12.7 (5-19); Aspartate Amino Transferase 33 U/L (0-40); Blood Urea Nitrogen 31 mg/dL (6-20); Calcium 9.2 mg/dL (8.5-10.5); Carbon Dioxide 23 mmol/L (22-29); Chloride 99 mmol/L (98-107); Globulin 2.6 g/dL (1.3-4.6); Glomerular Filtration Rate 76.5 mL/min (90-130); Glucose 117 mg/dL (74-109); Potassium 4.7 mmol/L (3.5-5.1); Sodium 130 mmol/L (136-145); Total Bilirubin 1.3 mg/dL (0.15-1.2); Total Protein 5.5 g/dL (6.6-8.7)
[2019-06-11] MEDS: enoxaparin 40 mg/0.4 mL Syringe SUBCUT (21:52)
[2019-06-11] MEDS: diazePAM 2 mg Tablet PO (21:53)
[2019-06-11] MEDS: lactulose oral liq 20 gm/30 mL UDC PO (21:53)
[2019-06-12] VITALS (8 sets, daily range): BP systolic 122–135; BP diastolic 68–75; PULSE 79–92; RESP 18; TEMP 36.3–36.7; O2SAT 96–99
[2019-06-12] MEDS: lactulose oral liq 20 gm/30 mL UDC PO (08:29)
--- NOTE | 2019-06-12 10:10 | PC.NURSE ---
Pt resting in bed with eyes closed. Aroused easily to verbal stimuli. Denies any complaints at this time. Call light in reach
--- NOTE | 2019-06-12 11:36 | PC.NURSE ---
0945- Pt was seen going down stairs at this time after being directed by staff that he was unable to leave the floor R/T safety concerns. Pt was found downstairs by the [facility] bathroom and redirected to come back upstairs. Pt educated once again on importance of not leaving the [facility] floor. 1130- Pt was once again found downstairs wandering around. Pt directed back to the floor by staff. Dr notified at this time of patient being redirected back to floor x2. will round shortly on patient.
--- NOTE | 2019-06-12 12:09 | PC.NURSE ---
Pt sitting up on side of the bed eating lunch at this time. IV dc'd at this time. Cath intact. Minimal bleeding noted.
--- NOTE | 2019-06-12 13:36 | PM.DCS ---
Discharge Providers Date of Admission: 06/08/19 02:42 Date of Discharge: 06/12/19 Attending Provider at Admission: uPma Nguyễn MD Attending Provider at Discharge: Rowena Winchester MD Diagnoses at Discharge Discharge Diagnosis (1) Polysubstance abuse: Status: Acute (2) Hernia, inguinal, right: Status: Acute (3) Chronic liver disease: Status: Acute (4) Encephalopathy, hepatic: Status: Acute Reason for Visit Reason for Visit: Reason For Visit: HEPATIC ENCEPHALOPATHY Hospital Course Discharge Summary: 58 year old male who was sent by his sister for chief complaint of altered mental status i.e. confusion. Patient has a history of chronic liver disease due to hepatitis C, he does not take any medications at home because he is not able to afford medications, he was recently admitted to [facility] for same complaint and was discharged on medications for hepatic encephalopathy but he was not able to afford the medication hence did not take any. He takes methamphetamine to relieve back pain. Diagnostics in ER showed normal hemodynamics abnormal ammonia level, mild confusion. CT head negative, right-sided inguinal hernia which is reproducible without any signs of gangrene or obstruction, U tox positive for methamphetamine. He was admitted to the hospital and further hepatic encephalopathy was treated with lactulose and rifaximin. His mental status improved significantly and returned back to baseline within about 24 hours. Through the hospital course and at time of discharge he is having 2-3 liquid bowel movements every day. For symptomatic right inguinal hernia he underwent hernia repair with mesh placement by Dr. Benjamin Clark on June 10. He tolerated the procedure well and perioperative course was uneventful. His pain is being controlled currently with Dilaudid and ibuprofen. He is being discharged with prescriptions for the same over the next 1 week. He should follow-up with [facility] for post hospital discharge and follow-up. Physical Exam Narrative: EXAM NARRATIVE: GEN: Awake, alert and oriented, no acute distress CVS: S1S2 N RS: CTA B/L except crackles over RUL Abd: Soft, nt/nd , bs+ CONCRETE POLISHER: no focal neuro deficits Extremities no cyanosis clubbing edema or lymphadenopathy. Discharge Data Data Completed and Pending: Completed Studies During Hospitalization Category Date Time Status CT abdomen pelvis w con* [id number] Urge nt Cat Scan 06/08/19 00:[address] head wo con* [id number] Urgent Cat Scan 06/08/19 00:21 Completed Pending at discharge Category Date Time Status Blood Culture Sta t Lab 06/07/19 21:24 Results Clostridium Diffi cile BY PCR Stat Lab 06/08/19 03:54 Uncollected Labs from last 24 hours 06/11/19 13:04 Sodium 130 L Potassium 4.7 Chloride 99 Carbon Dioxide 23 Anion Gap 12.7 BUN 31 H Creatinine 1.0 GFR Calculation 76.5 L Glucose 117 H Calcium 9.2 Total Bilirubin 1.3 H AST 33 ALT 19 Alkaline Phosphata se 119 Total Protein 5.5 L Albumin 2.9 L Globulin 2.6 Vitals: Last Vital Signs Temp 97.3 F L 06/12/19 12:26 Pulse 83 06/12/19 12:26 Resp 18 06/12/19 12:26 BP 135/71 06/12/19 12:26 Pulse Ox 97 06/12/19 12:26 Discharge Plan Discharge Patient Disposition: Home, Self-Care Condition: Stable Prescriptions: New diazepam 2 mg Tablet 2 mg PO BEDTIME PRN (Reason: sleep) 10 Days Qty: 10 RF: 0 ibuprofen 200 mg Tablet 400 mg PO Q6H PRN (Reason: Moderate Pain) Qty: 0 RF: 0 hydromorphone 4 mg Tablet 4 mg PO Q8H PRN (Reason: Pain) 5 Days Qty: 15 RF: 0 Xifaxan 550 mg Tablet 550 mg PO BID 15 Days Qty: 30 RF: 0 lactulose 20 gram/30 mL Solution 20 g PO Q12H 30 Days Qty: 1800 RF: 0 Discharge Orders: Discharge Order (Routine); Ordered 06/12/19 Ordered By: Rowena Winchester Referrals: [facility] [Other] - 06/15/19 9:30 am Discharge Diet: Advance as tolerated and Usual diet Discharge Activity: Limit activity as instructed Patient Instructions: Ibuprofen (By mouth), Diazepam (By mouth), Lactulose (By mouth), Hydromorphone (By mouth), Rifaximin (By mouth), Cirrhosis (DC), Inguinal Hernia (DC), Hepatic Encephalopathy (DC) Activity Restrictions/Additional Instructions: Do not life heavy objects to avoid hernia recurrence Discharge Attestations Time Spent in Discharge Care*: less than 30 min Quality Metrics Clinical Quality Measures During this hospital stay, did patient experience: None Coding Level of Care Code Acute Satellite Tv Technician Installer for Chg Fwd Diagnoses Polysubstance abuse F19.10 Hernia, inguinal, right K40.90 Chronic liver disease K76.9 Encephalopathy, hepatic K72.90
--- NOTE | 2019-06-18 09:38 | PC.SOCIAL ---
patient asked scripts to be cancelled at [facility] and sent to [facility]. Dr Winchester has completed this task this am. [facility] did receive med orders and patient was updated.
== END 2019-06-12 14:46 | disposition home or self-care (01) | DRG 352 ==
LOC: ER 06-08 03:14 → MEDSURG 06-08 03:17
PROVIDERS: Internal Medicine; Surgery; Admitting Provider Internal Medicine; Emergency Provider Nurse Practitioner Family; Visit Provider Student in an Organized Health Care Education/Training Program
PROC: 0YU54JZ Supplement Right Inguinal Region with Synthetic Substitute, Percutaneous Endoscopic Approach (ICD-10-PCS; principal; 2019-06-10 12:00)
DX: K40.90 Unilateral inguinal hernia, without obstruction or gangrene, not specified as recurrent (principal); K72.90 Hepatic failure, unspecified without coma; F15.229 Other stimulant dependence with intoxication, unspecified; Z91.120 Patient's intentional underdosing of medication regimen due to financial hardship; B19.20 Unspecified viral hepatitis C without hepatic coma; F17.210 Nicotine dependence, cigarettes, uncomplicated; E86.0 Dehydration; J44.9 Chronic obstructive pulmonary disease, unspecified; K76.9 Liver disease, unspecified
CPT/HCPCS: 12345; 36415; 70450; 74177; 80053; 80307; 81001; 82140; 82274; 83605; 83690; 83735; 85025; 85610; 87040; 87804; 96365; 96372; 96374; 96375; 97161; 99283; J0690; J0696; J1650; J1885; J2001; J2250; J2270; J2704; J3010; J3475; J3490; J7030; Q9967